=== PATIENT | male | born 1965 | race Caucasian/White ===

== ENCOUNTER 2017-03-10 14:42 | Emergency (ER) | payer MEDICAID, OTHER ==
[2017-03-10] MEDS: SODIUM CHLORIDE 0.9% FLUSH 10 ML SOL IV PRN ×2 (14:47→15:18)
[2017-03-10] MEDS ORDERED: NITROGLYCERIN 0.4 MG TAB SL PRN (14:53)
[2017-03-10] MEDS ORDERED: ASPIRIN 81 MG CHEWABLE CTB PO STA (14:53)
[2017-03-10 15:02] LABS: BASOPHILS % (AUTO) 1 % (0-3); EOSINOPHILS % (AUTO) 1 % (0-9); HEMATOCRIT 45 % (39-53); MEAN CORPUSCULAR HGB CONC 34.9 gm/dl (32.0-36.0); MEAN CORPUSCULAR VOLUME 85 fL (80-100); MONOCYTES % (AUTO) 4.6 % (0-12); NEUTROPHILS % (AUTO) 90.3 % (37-80)
[2017-03-10] MEDS ORDERED: MORPHINE SULFATE 10 MG/ML SOL IV ONE (15:05)
[2017-03-10] MEDS ORDERED: MORPHINE SULFATE 10 MG/ML SOL ONE (15:07)
[2017-03-10 15:11] LABS: CALCIUM 8.3 mg/dl (8.5-10.1); GLOM FILT RATE 60 mL/min (>60); POTASSIUM 4.2 mMol/L (3.5-5.1); SODIUM 141 mMol/L (136-145)
[2017-03-10 15:12] VITALS: TEMP 98
[2017-03-10] MEDS ORDERED: ONDANSETRON HCL 4 MG/2 ML SOL IV ONE (15:12)
[2017-03-10] MEDS ORDERED: ONDANSETRON HCL 4 MG/2 ML SOL ONE (15:14)
[2017-03-10 16:08] VITALS: PULSE 106; O2SAT 95
[2017-03-10 16:54] VITALS: BP 112/66; RESP 29
== END 2017-03-10 17:33 | disposition home or self-care (01) | DRG 311 ==
LOC: ED 14:42
DX: I20.8 Other forms of angina pectoris (principal); I10 Essential (primary) hypertension; Z95.5 Presence of coronary angioplasty implant and graft
CPT/HCPCS: 71010; 80048; 82550; 84484; 85025; 93005; 99285; J2270; J2405

== ENCOUNTER 2018-04-12 11:15 | Emergency (ER) | payer OTHER ==
[2018-04-12 11:38] VITALS: TEMP 97.9
[2018-04-12] MEDS ORDERED: ONDANSETRON HCL 4 MG/2 ML SOL ONE (12:38)
[2018-04-12] MEDS ORDERED: ONDANSETRON HCL 4 MG/2 ML SOL IV ONE (12:38)
[2018-04-12 12:43] LABS: LACTIC ACID 2.6 mMol/L (0.0-2.0)
[2018-04-12] MEDS ORDERED: SODIUM CHLORIDE 0.9% 1000 ML SOL IV SCH (12:45)
[2018-04-12] MEDS ORDERED: ACETAMINOPHEN 500 MG 500 MG TAB PO ONE (12:58)
[2018-04-12] MEDS ORDERED: ACETAMINOPHEN 500 MG 500 MG TAB ONE (12:59)
[2018-04-12 13:04] LABS: BLOOD UREA NITROGEN 21 mg/dl (7-18); CALCIUM 8.9 mg/dl (8.5-10.1); CARBON DIOXIDE 26.7 mEq/L (21-32); CHLORIDE 109 mMol/L (98-107); CREATININE 1.08 mg/dl (0.80-1.30); GLOM FILT RATE 71 mL/min (>60); GLUCOSE 139 mg/dl (74-106); POTASSIUM 4.8 mMol/L (3.5-5.1); SODIUM 144 mMol/L (136-145); TROP I < 0.017 ng/ml (0.000-0.056)
[2018-04-12 13:06] LABS: CRP INFLAMMATORY 0.04 mg/dl (0.00-0.33)
[2018-04-12 13:07] LABS: BASOPHILS % (AUTO) 1 % (0-3); EOSINOPHILS % (AUTO) 1 % (0-9); HEMATOCRIT 39 % (39-53); HEMOGLOBIN 13.7 gm/dl (13.5-17.7); LYMPHOCYTES % (AUTO) 18.8 % (10-50); MEAN CORPUSCULAR HEMOGLOBIN 30.5 pg (27.0-32.0); MEAN CORPUSCULAR VOLUME 87 fL (80-100); MONOCYTES % (AUTO) 7.4 % (0-12)
[2018-04-12] MEDS ORDERED: SODIUM CHLORIDE 0.9% 1000ML 1,000 ML IV ONE (13:42)
[2018-04-12 14:44] VITALS: BP 153/94; PULSE 78; RESP 20; O2SAT 98
[2018-04-12 15:18] LABS: APPEARANCE,URINE Clear; BILIRUBIN,URINE NEGATIVE (NEGATIVE); COLOR,URINE Yellow; GLUCOSE, URINE (UA) NEGATIVE (NEGATIVE); KETONES,URINE NEGATIVE (NEGATIVE); LEUKOCYTE ESTERASE ,URINE NEGATIVE (NEGATIVE); NITRATE,URINE NEGATIVE (NEGATIVE); OCCULT BLOOD,URINE NEGATIVE (NEG-TRACE); PH,URINE 5.5; UROBILINOGEN,URINE 0.2 (0.2-1.0 EU)
[2018-04-12 15:30] LABS: BACTERIA TRACE (< 1+); CRYSTALS NEGATIVE (0-3 AVE/HPF); EPITHELIAL CELLS 0-1 (SQUAMOUS); RBC,URINE NEGATIVE (0-3AV/HPF); WBC,URINE NEGATIVE (0-5AV/HPF)
== END 2018-04-12 15:38 | disposition home or self-care (01) | DRG 392 ==
LOC: ED 11:15
DX: R11.0 Nausea (principal); E11.9 Type 2 diabetes mellitus without complications
CPT/HCPCS: 36415; 70450; 80048; 81001; 84484; 85025; 93005; 96365; 96366; 96374; 99283; 99285; J2405

== ENCOUNTER 2018-05-05 15:10 | Emergency (ER) | payer OTHER ==
[2018-05-05 15:20] VITALS: TEMP 97
[2018-05-05] MEDS ORDERED: MORPHINE SULFATE 10 MG/ML SOL IV ONE (15:34)
[2018-05-05] MEDS ORDERED: ASPIRIN 81 MG CHEWABLE CTB ONE (15:40)
[2018-05-05] MEDS ORDERED: MORPHINE SULFATE 10 MG/ML SOL ONE (15:40)
[2018-05-05] MEDS ORDERED: SODIUM CHLORIDE 0.9% 1000ML 500 ML IV SCH (15:45)
[2018-05-05 15:47] VITALS: PULSE 66
[2018-05-05 15:53] LABS: ALBUMIN 4.1 gm/dl (3.4-5.0); ALKALINE PHOSPHATASE 61 IU/L (46-116); ALT 48 IU/L (14-63); AST 26 IU/L (15-37); BILIRUBIN,TOTAL 0.3 mg/dl (0.2-1.0); BLOOD UREA NITROGEN 26 mg/dl (7-18); CALCIUM 9.5 mg/dl (8.5-10.1); CARBON DIOXIDE 27.2 mEq/L (21-32); CHLORIDE 105 mMol/L (98-107); GLOM FILT RATE 70 mL/min (>60); GLUCOSE 114 mg/dl (74-106); POTASSIUM 4.4 mMol/L (3.5-5.1); SODIUM 142 mMol/L (136-145); TOTAL PROTEIN 7.3 gm/dl (6.4-8.2); TROP I < 0.017 ng/ml (0.000-0.056)
[2018-05-05 16:05] VITALS: BP 164/62; RESP 16; O2SAT 96
[2018-05-05 16:15] LABS: HEMATOCRIT 42 % (39-53)
[2018-05-06] MEDS ORDERED: ASPIRIN 325 MG TAB PO SCH (09:00)
== END 2018-05-05 16:33 | disposition home or self-care (01) | DRG 103 ==
LOC: ED 15:10
DX: G44.209 Tension-type headache, unspecified, not intractable (principal); M54.2 Cervicalgia; E11.9 Type 2 diabetes mellitus without complications
CPT/HCPCS: 36415; 71045; 80053; 82962; 84484; 85014; 85025; 85048; 93005; 96365; 96374; 99284; 99285; J2270